=== PATIENT | male | born 1970 | race Caucasian/White ===

== ENCOUNTER → 2023-03-04 | Outpatient (CLI) | payer BC | END | disposition home or self-care (01) | LOC: LABWHC1 07:29 | PROVIDERS: ATTEND Nurse Practitioner | DX: N52.03 Combined arterial insufficiency and corporo-venous occlusive erectile dysfunction (principal) | CPT/HCPCS: 36415; 84403 ==

== ENCOUNTER → 2023-03-25 | Outpatient (CLI) | payer BC ==
--- NOTE | 2023-03-25 08:21 | MR ---
EXAMINATION TYPE: MR iac wo/w con DATE OF EXAM: 03/25/2023 COMPARISON: None HISTORY: rt ear tinnitus TECHNIQUE: Multi planar, multi sequence imaging was performed through the brain. Specialized thin sequences wer e obtained through the internal auditory canals. Pre-and post gadolinium sequences were obtained as well after administration of 12 cc of Gadavist. FINDINGS: The abad-white junctions, ventricular system, basal cisterns appear unremarkable. Diffusi on-weighted imaging shows no evidence of restricted diffusion. Few hyperintense foci of T2/FLAIR are seen within the subcortical white matter bilaterally. No susceptibility artifact to suggest microhem orrhage. The internal auditory canal sequences demonstrate no significant irregularity. The 7th cranial nerve s, 8 cranial nerves, and cerebellar pontine angles appear unremarkable. After the administration charissa olinium, no abnormal enhancement is seen within the internal auditory canals. Right aphakia. IMPRESSION: 1. No evidence of acute/subacute CVA. 2. No evidence of internal auditory canal abnormality. 3. Nonspecific few white matter changes which is likely related to chronic small vessel ischemic dise ase.
== END | disposition home or self-care (01) ==
LOC: RADMRIMAIN 06:45
PROVIDERS: ATTEND Otolaryngology
DX: H93.11 Tinnitus, right ear (principal); G93.89 Other specified disorders of brain
CPT/HCPCS: 70553; A9585

== ENCOUNTER 2023-07-08 13:07 | Observation (INO) | payer BC ==
[2023-07-08 13:34] VITALS: TEMP 98.4
--- NOTE | 2023-07-08 13:48 | ED ---
Chest Pain HPI - General Chief Complaint: Chest Pain Stated Complaint: Abnomal EKG Time Seen by Provider: 07/08/23 13:10 Source: patient ([id number]), RN notes reviewed Mode of arrival: ambulatory Limitations: no limitations - History of Present Illness Initial Comments: 52-year-old male presents emergency department with chief complaint of chest pain pressure. Patient states that he was seen by his PCP and sent here. He states he started with symptoms when he was in [place]. He states he noticed that he did have heart racing throughout the night he states with some activity noticed that heart rate elevated up to 120s to 160s. Patient states he has no prior cardiac disease other than hypertension patient denies any fevers chills cough or cold-like symptoms denies any leg pain or leg swelling no abdominal pain. - Related Data Home Medications Medication Instructions Recorded Confirmed Bpc-157 Peptide Supplement 1 dose INJ DAILY 07/08/23 07/08/23 Injection Igf1-Lr3 Peptide Supplement 1 dose INJ DAILY 07/08/23 07/08/23 Injection Losartan [Cozaar] 25 mg PO DAILY 07/08/23 07/08/23 Naproxen [EC-Naprosyn] 500 mg PO BID PRN 07/08/23 07/08/23 hydrALAZINE HCL [Apresoline] 25 mg PO TID 07/08/23 07/08/23 hydroCHLOROthiazide [Hydrodiuril] 25 mg PO DAILY 07/08/23 07/08/23 Allergies Allergy/AdvReac Type Severity Reaction Status Date / Time Penicillins Allergy Unknown Verified 07/08/23 14:24 Childhood Review of Systems ROS Statement: Those systems with pertinent positive or pertinent negative responses have been documented in the HPI. ROS Other: All systems not noted in ROS Statement are negative. EKG Findings - EKG Comments: EKG Findings:: EKG performed at 13: 21 sinus rhythm rate of 75 PA 161 QRS 88 QT/QTc 356/385 inverted T wave lead III - EKG Results: EKG: interpreted by ROD Past Medical History Past Medical History: Hypertension History of Any Multi-Drug Resistant Organisms: None Reported Past Surgical History: No Surgical Hx Reported Past Psychological History: No Psychological Hx Reported Smoking Status: Never smoker Past Alcohol Use History: None Reported, Rare Past Drug Use History: None Reported General Exam Limitations: no limitations General appearance: alert, in no apparent distress Head exam: Present: atraumatic, normocephalic, normal inspection Eye exam: Present: normal appearance ENT exam: Present: normal exam, normal oropharynx, mucous membranes moist Neck exam: Present: normal inspection, full ROM. Absent: tenderness, meningismus, lymphadenopathy Respiratory exam: Present: normal lung sounds bilaterally. Absent: respiratory distress, wheezes, rales, rhonchi, stridor Cardiovascular Exam: Present: regular rate, normal rhythm, normal heart sounds. Absent: systolic murmur, diastolic murmur, rubs, gallop, clicks Course Vital Signs 07/08/23 07/08/23 13:12 14:18 Temperature 98.4 F Pulse Rate 77 77 Respiratory 18 18 Rate Blood Pressure 131/87 133/88 O2 Sat by Pulse 97 98 Oximetry Chest Pain MDM - MDM Was pt. sent in by a medical professional or institution (, PA, RESISTOR TESTING MACHINE OPERATOR, urgent care, hospital, or [place] health [place] facility...) When possible be specific @ -No Did you speak to anyone other than the patient for history (EMS, parent, family, police, friend...)? What history was obtained from this source @ -No Did you review nursing and triage notes (agree or disagree)? Why? @ -I reviewed and agree with nursing and triage notes Were old charts reviewed (outside hosp., previous admission, EMS record, old EKG, old radiological studies, urgent care reports/EKG's, [place] health [place] records)? Report findings @ -No old charts were reviewed Differential Diagnosis (chest pain, altered mental status, abdominal pain women, abdominal pain men, vaginal bleeding, weakness, fever, dyspnea, syncope, headache, dizziness, GI bleed, back pain, seizure, CVA, palpatations, mental health, musculoskeletal)? @ -Differential Chest Pain: Stable Angina, Unstable Angina, STEMI, NSTEMI Aortic Dissection, Pneumothorax, Musculoskeletal, Esophageal Spasm GERD, Cholecystitis, Pancreatitis, Zoster, this is not meant to be an all-inclusive list. EKG interpreted by me (3pts min.). @ -As above X-rays interpreted by me (1pt min.). @ -[Chest x-ray shows no acute cardiopulmonary process CT interpreted by me (1pt min.). @ -None done U/S interpreted by me (1pt. min.). @ -None done What testing was considered but not performed or refused? (CT, X-rays, U/S, labs)? Why? @ -None What meds were considered but not given or refused? Why? @ -None Did you discuss the management of the patient with other professionals (professionals i.e. , PA, RESISTOR TESTING MACHINE OPERATOR, lab, RT, psych nurse, nursing home social worker, biostatistics professor, teacher, executive vice president and chief financial officer, nurse case management)? Give summary @ -[EM H for admission for cardiac rule out Was smoking cessation discussed for >3mins.? @ -No Was critical care preformed (if so, how long)? @ -No Were there social determinants of health that impacted care today? How? (Homelessness, low income, unemployed, alcoholism, drug addiction, transportati on, low edu. Level, literacy, decrease access to med. care, fci, rehab)? @ -No Was there de-escalation of care discussed even if they declined (Discuss DNR or withdrawal of care, Hospice)? DNR status @ -No What co-morbidities impacted this encounter? (DM, HTN, Smoking, COPD, CAD, Cancer, CVA, ARF, Chemo, Hep., AIDS, mental health diagnosis, sleep apnea, morbid obesity)? @ -[Hypertension Was patient admitted / discharged? Hospital course, mention meds given and route, prescriptions, significant lab abnormalities, going to OR and other pertinent info. @ -Admitted patient sent in by PCP for chest pain. Initial workup was negative. Patient on repeat laboratory studies, admission, cardiology evaluation echocardiogram Undiagnosed new problem with uncertain prognosis? @ -[No Drug Therapy requiring intensive monitoring for toxicity (Heparin, Nitro, Insulin, Cardizem)? @ -No Were any procedures done? @ -No Diagnosis/symptom? @ -[Chest pain Acute, or Chronic, or Acute on Chronic? @ -Acute Uncomplicated (without systemic symptoms) or Complicated (systemic symptoms)? @ -complicated Side effects of treatment? @ -[No Exacerbation, Progression, or Severe Exacerbation? @ -No Poses a threat to life or bodily function? How? (Chest pain, [place], [place], pneumonia, PE, COPD, DKA, ARF, appy, cholecystitis, CVA, Diverticulitis, Homicidal, Suicidal, threat to staff... and all critical care pts) @ -[Yes possible ACS Disposition Clinical Impression: Chest pain Disposition: ADMITTED IP TO THIS HOSP Condition: Fair Referrals: Sammy Farah DO [Primary Care Provider] - 1-2 days Time of Disposition: 14:47
[2023-07-08 13:49] LABS: Appearance,Urine Clear (Clear); Bilirubin,Urine Negative (Negative); Blood,Urine Negative (Negative); Color,Urine Colorless; Glucose,Urine (UA) Negative (Negative); Ketones,Urine Negative (Negative); Leukocyte Esterase,Urine Negative (Negative); Nitrite,Urine Negative (Negative); PH, Urine 6.5 (5.0-8.0); Protein,Urine Negative (Negative); Specific Gravity,Urine 1.009 (1.001-1.035); Urobilinogen,Urine <2.0 mg/dL (<2.0)
[2023-07-08 14:00] LABS: ALT 19 U/L (4-49); AST 26 U/L (17-59); African American GFR (CKD) 82 (>60 ml/min/1.73 sqM); Albumin 4.4 g/dL (3.5-5.0); Alkaline Phosphatase 64 U/L (38-126); Anion Gap 7 mmol/L; Basophils % (A) 1 %; Blood Urea Nitrogen 15 mg/dL (9-20); Calcium 9.3 mg/dL (8.4-10.2); Carbon Dioxide 27 mmol/L (22-30); Chloride 103 mmol/L (98-107); Eosinophils # (A) 0.2 k/uL (0-0.7); Eosinophils % (A) 5 %; Glucose 91 mg/dL (74-99); HCT 46.3 % (39.0-53.0); HGB 15.8 gm/dL (13.0-17.5); Lymphocytes # (A) 1.1 k/uL (1.0-4.8); Lymphocytes % (A) 28 %; MCHC 34.1 g/dL (31.0-37.0); MCV 93.9 fL (80.0-100.0); Magnesium 1.9 mg/dL (1.6-2.3); Mean Platelet Volume 7.9; Monocytes # (A) 0.2 k/uL (0-1.0); Monocytes % (A) 5 %; Neutrophils # (A) 2.4 k/uL (1.3-7.7); Neutrophils % (A) 59 %; Non-African American GFR(CKD) 71 (>60 ml/min/1.73 sqM); Platelet Count 217 k/uL (150-450); RBC 4.92 m/uL (4.30-5.90); Sodium 137 mmol/L (137-145); Total Bilirubin 0.5 mg/dL (0.2-1.3); Total Protein 7.1 g/dL (6.3-8.2); WBC 4.1 k/uL (3.8-10.6)
[2023-07-08 14:01] LABS: INR 0.9 (<1.2); Partial Thromboplastin Time 25.3 sec (22.0-30.0); Prothrombin Time 10.1 sec (10.0-12.5)
[2023-07-08 14:09] LABS: NT-Pro-B-Type Natriuretic Pept 31 pg/mL
[2023-07-08] MEDS: ASPIRIN 81 MG PO STA (14:24)
--- NOTE | 2023-07-08 14:25 | XR ---
EXAMINATION TYPE: XR chest 2V DATE OF EXAM: 07/08/2023 1:44 PM CLINICAL INDICATION:Male, 52 years old with history of Chest Pain; COMPARISON: None TECHNIQUE: XR chest 2V Frontal and lateral views of the chest. FINDINGS: Lungs/Pleura: There is no evidence of pleural effusion, focal consolidation, or pneumothorax. Pulmonary vascularity: Unremarkable. Heart/mediastinum: Cardiomediastinal silhouette is unremarkable. Musculoskeletal: No acute osseous pathology. Other findings: None IMPRESSION: No acute cardiopulmonary disease/process.
[2023-07-08] MEDS ORDERED: NAPROXEN 250 MG TAB PO PRN (17:03)
[2023-07-08] MEDS ORDERED: TEMAZEPAM 15 MG CAP PO PRN (17:04)
[2023-07-08] MEDS: PANTOPRAZOLE 40 MG TABLET PO SCH (17:52)
[2023-07-08] MEDS: hydrALAZINE HCL 25 MG TAB PO SCH (22:52)
--- NOTE | 2023-07-08 22:52 | HP ---
HISTORY AND PHYSICAL CHIEF COMPLAINT: Chest pain. HISTORY OF PRESENT ILLNESS: This is a 52-year-old gentleman with a past medical history of hypertension, was complaining of chest pain, which was felt in the central and left side of chest squeezing in character for the last several days. The patient was evaluated by primary care physician and was admitted and referred to [facility]. The EKG showed some minimal changes in lead 3 and possibly. There is no history of any fever, rigors, or chills. Initial troponins are negative. PAST MEDICAL HISTORY: Reviewed include hypertension. HOME MEDICATIONS: Reviewed include hydrochlorothiazide, rest of medications noted. ALLERGIES: Penicillin. FAMILY HISTORY: No history of heart disease or strokes in the family. SOCIAL HISTORY: No history of smoking or alcohol intake. The patient works in [employer] REVIEW OF SYSTEMS: Fourteen-point review is negative except as mentioned earlier. PHYSICAL EXAMINATION: VITAL SIGNS: Pulse 77, blood pressure 133/80, respirations 18. HEENT: Conjunctivae normal. NECK: No JVD. CARDIOVASCULAR: S1, S2. RESPIRATIONS: Clear to auscultation. ABDOMEN: Soft. NERVOUS SYSTEM: Nonfocal. SKIN: No ulcer, rash, bleeding. JOINTS: No active deforming arthropathy. LABORATORY DATA: Labs are noted. EKG reviewed. ASSESSMENT: 1. Chest pain, rule out coronary artery disease and unstable angina, myocardial infarction. 2. Abnormal EKG. 3. Hypertension. RECOMMENDATIONS AND DISCUSSION: This is a 52-year-old gentleman who presented with multiple complex medical issues, we will monitor the patient closely. Unstable angina protocol. Cardiology consultation. N.p.o. past midnight. Possible stress test in the morning per Cardiology. Otherwise, we will monitor the patient closely. We will check a fasting lipid also. MMODL / IJN: [id number] / MTDD
[2023-07-09 02:20] VITALS: BP 123/76
[2023-07-09 03:42] VITALS: PULSE 57; RESP 17
[2023-07-09] MEDS: NITROGLYCERIN SL TABS 0.4 MG TAB SUBLINGUAL PRN (08:43)
[2023-07-09] MEDS ORDERED: ASPIRIN 325 MG TAB PO SCH (09:00)
[2023-07-09] MEDS: NITROGLYCERIN SL TABS 0.4 MG TAB SUBLINGUAL STA (09:02)
[2023-07-09] MEDS: ACETAMINOPHEN TAB 325 MG TAB PO PRN (09:10)
--- NOTE | 2023-07-09 10:10 | P.CRDCN ---
History of Present Illness History of present illness: HISTORY OF PRESENT ILLNESS: This is a 52-year-old male with a past medical history significant for hypertension. Patient does not follow with a geometry teacher. We have been asked to see the patient in consultation for chest pain. Patient examined at the bedside in the emergency room. Patient states over the past 2 weeks he has been doing a lot of traveling for work. He states that he has been having episodes where he feels his heart racing and feels like his heart is being squeezed. He states he has a blood pressure machine and has been checking his blood pressure which has been normal. He states the heart rate is usually in the 90s despite feeling like his heart is racing. He does report that the symptoms seem to get worse at night. He reports that he recently started taking 2 types of peptides that are injected. 1 is for gut health and 1 is for muscle growth. He is a non-smoker. He denies any drug use including marijuana. He reports social alcohol use. He states that he usually exercises at least 5 days a week. He reports recently he has been getting more short of breath with exercise and also noticing that his heart rate is higher than normal. He reports that his mother had stents placed in 2005. The patient did receive a dose of sublingual nitro this morning without resolution of his chest pain. DIAGNOSTICS: - EKG reveals sinus mechanism with no signs of acute ischemia. - Chest xray negative for acute process. - Laboratory data: WBC 4.1. Hemoglobin 15.8. Platelet count 217. D-dimer 0.28. Sodium 137. Potassium 4.0. BUN 15. Creatinine 1.17. Magnesium 1.9. Troponin negative x 3. proBNP 31. - Current home cardiac medications include hydrochlorothiazide 25 mg daily, losartan 25 mg daily, and hydralazine 25 mg 3 times a day. REVIEW OF SYSTEMS: At the time of my exam: CONSTITUTIONAL: Denies fever or chills. HEENT: Denies blurred vision, vision changes, or eye pain. Denies hemoptysis CARDIOVASCULAR: Denies chest pain. Denies orthopnea. Denies PND. Denies palpitations RESPIRATORY: Denies shortness of breath. GASTROINTESTINAL: Denies abdominal pain. Denies nausea or vomiting. HEMATOLOGIC: Denies bleeding disorders. GENITOURINARY: Denies any blood in urine. SKIN: Denies pruitis. Denies rash. PHYSICAL EXAM: VITAL SIGNS: Reviewed. GENERAL: Well-developed in no acute distress. HEENT: Head is normocephalic. Pupils are equal, round. Sclerae anicteric. Mucous membranes of the mouth are moist. Neck supple. No JVD or thyromegaly LUNGS: Respirations even and unlabored. Lungs essentially clear to auscultation bilaterally. HEART: Regular rate and rhythm. S1 and S2 heard. ABDOMEN: Soft. Nondistended. Nontender. EXTREMITIES: Normal range of motion. No clubbing or cyanosis. Peripheral pulses intact. No lower extremity edema NEUROLOGIC: Awake and alert. Oriented x 3. ASSESSMENT: Palpitations Chest pain, troponin negative x 3 History of hypertension PLAN: An acute coronary event has been ruled out Obtain 2D echo to assess cardiac structure and function Resume home cardiac medications Patient to undergo stress echocardiogram today If negative, he may be discharged home from a cardiac standpoint Nurse practitioner note has been reviewed by physician. Signing provider agrees with the documented findings, assessment, and plan of care documented by HORTICULTURAL FARMWORKER as a scribe. Past Medical History Past Medical History: Hypertension History of Any Multi-Drug Resistant Organisms: None Reported Past Surgical History: No Surgical Hx Reported Past Psychological History: No Psychological Hx Reported Smoking Status: Never smoker Past Alcohol Use History: None Reported, Rare Past Drug Use History: None Reported Medications and Allergies Home Medications Medication Instructions Recorded Confirmed Type Bpc-157 Peptide Supplement 1 dose INJ DAILY 07/08/23 07/08/23 History Injection Igf1-Lr3 Peptide Supplement 1 dose INJ DAILY 07/08/23 07/08/23 History Injection Losartan [Cozaar] 25 mg PO DAILY 07/08/23 07/08/23 History Naproxen [EC-Naprosyn] 500 mg PO BID PRN 07/08/23 07/08/23 History hydrALAZINE HCL [Apresoline] 25 mg PO TID 07/08/23 07/08/23 History hydroCHLOROthiazide [Hydrodiuril] 25 mg PO DAILY 07/08/23 07/08/23 History Allergies Allergy/AdvReac Type Severity Reaction Status Date / Time Penicillins Allergy Unknown Verified 07/08/23 14:24 Childhood Physical Exam Vitals: Vital Signs Temp Pulse Resp BP Pulse Ox 07/09/23 03:41 57 L 17 96 07/09/23 02:08 60 18 123/76 93 L 07/09/23 00:20 64 19 96 07/08/23 22:53 95 17 142/91 98 07/08/23 19:28 73 19 136/82 98 07/08/23 16:00 61 20 121/85 97 07/08/23 14:18 77 18 133/88 98 07/08/23 13:12 98.4 F 77 18 131/87 97 Results 07/08/23 13:30 07/08/23 13:30 Cardiac Enzymes 07/08/23 07/08/23 07/08/23 Range/Units 13:30 13:30 16:00 AST 26 (17-59) U/L Troponin I <0.012 <0.012 (0.000-0.034) ng/mL 07/08/23 Range/Units 18:52 AST (17-59) U/L Troponin I <0.012 (0.000-0.034) ng/mL Coagulation 07/08/23 Range/Units 13:30 PT 10.1 (10.0-12.5) sec APTT 25.3 (22.0-30.0) sec CBC 07/08/23 Range/Units 13:30 WBC 4.1 (3.8-10.6) k/uL RBC 4.92 (4.30-5.90) m/uL Hgb 15.8 (13.0-17.5) gm/dL Hct 46.3 (39.0-53.0) % Plt Count 217 (150-450) k/uL Comprehensive Metabolic Panel 07/08/23 Range/Units 13:30 Sodium 137 (137-145) mmol/L Potassium 4.0 (3.5-5.1) mmol/L Chloride 103 (98-107) mmol/L Carbon Dioxide 27 (22-30) mmol/L BUN 15 (9-20) mg/dL Creatinine 1.17 (0.66-1.25) mg/dL Glucose 91 (74-99) mg/dL Calcium 9.3 (8.4-10.2) mg/dL AST 26 (17-59) U/L ALT 19 (4-49) U/L Alkaline Phosphatase 64 (38-126) U/L Total Protein 7.1 (6.3-8.2) g/dL Albumin 4.4 (3.5-5.0) g/dL Current Medications Generic Name Dose Route Start Last Admin Trade Name Freq PRN Reason Stop Dose Admin Aspirin 325 mg 07/09/23 09:00 Aspirin 325 Mg Tab PO DAILY [facility] Hydralazine HCl 25 mg 07/08/23 22:00 07/08/23 22:52 Hydralazine Hcl 25 Mg Tab PO 25 mg TID STEFFI Administration Hydrochlorothiazide 25 mg 07/09/23 09:00 Hydrochlorothiazide 25 Mg Tab PO DAILY [facility] Losartan Potassium 25 mg 07/09/23 09:00 Losartan 25 Mg Tab PO DAILY [facility] Naproxen 500 mg 07/08/23 17:03 Naproxen 250 Mg Tab PO BID PRN Pain or Fever > 100.5 Nitroglycerin 0.4 mg 07/08/23 15:03 Nitroglycerin Sl Tabs 0.4 Mg Tab SUBLINGUAL Q5M PRN Chest Pain Pantoprazole Sodium 40 mg 07/08/23 17:15 07/08/23 17:52 Pantoprazole 40 Mg Tablet PO 40 mg AC-BRKFST [facility] Administration Temazepam 15 mg 07/08/23 17:04 Temazepam 15 Mg Cap PO HS PRN Insomnia 07/08/23 13:30 07/08/23 13:30
[2023-07-09 12:33] LABS: BUN/Creat Ratio 12.38 Ratio (12.00-20.00); Blood Urea Nitrogen 16.1 mg/dL (9.0-27.0); Calcium 9.3 mg/dL (8.7-10.3); Carbon Dioxide 29.1 mmol/L (21.6-31.8); Chloride 101 mmol/L (96-109); Chol/HDL Ratio 2.96 Ratio; Glucose 97 mg/dL (70-110); LDL Cholesterol,Calculated 80.3 mg/dL (0.0-131.0); Sodium 139 mmol/L (135-145); VLDL Calculation 18.38 mg/dL (5.00-40.00)
[2023-07-09] MEDS: hydroCHLOROthiazide 25 MG TAB PO SCH (12:51)
[2023-07-09] MEDS: LOSARTAN 25 MG TAB PO SCH (12:51)
--- NOTE | 2023-07-09 12:56 | CA ---
Stress Echo Report Will Jenkins Age: 52 Gender: M : 1970 Exam Date: 07/09/2023 11:36 Exam Location: [place] Stress Ht (in): 63 Wt (lb): 280 Ordering Physician: Ritu Ramirez Referring Physician: [id number] Telephone Clerk: Armen Bah Technologist Procedure CPT: Indication: CP, palpitations ICD-9 Codes: Rhythm: Patient History: Cardiac Medications: Medications in past 24 hours: Contrast: N/A Stress Results Protocol: Laz Total dose(mL): NA Exercise Duration (min:sec): 10:[address] Depression (mm): Angina Score: Arevalo Score: METS: 12.1 Resting HR: 91 Resting BP: 105 / 47 Peak HR: 171 Peak BP: 160 / 51 Max Predicted HR: 167 102 % Max Predicted HR Target HR: 142 Double Product: [id number] Stress Summary: BP Response: Reason for Termination: Reached target heart rate or work-load Cardiac Symptoms: CHEST PAIN ECG Analysis Resting ECG: Stress ECG: Arrhythmia: Echo Analysis Resting Echo: Peak Echo Analysis: MEASUREMENTS (Male/Female) Normal Values CONCLUSIONS Patient underwent exercise stress echo with a Laz protocol treadmill stress test. Patient exercised into Stage 3 for a total of 10 minutes and 35 seconds reaching a total of 12.1 METS. Patient's maximum heart rate was 171 which represented 100 % age-predicted maximum heart rate. Patient was noted to have atypical chest pain throughout the exam unchanged. Stress EKG portion: At baseline patient's EKG showed normal sinus rhythm, normal axis, no significant ST or T wave abnormalities. At peak exercise, EKG showed no significant change from baseline. Stress echo portion: 2-D echocardiogram was performed in the parasternal long, personal short, apical 2 and apical four-chamber views at rest, peak exercise and in recovery. At baseline, echocardiogram showed left ventricular ejection fraction 55% without wall motion abnormalities. With peak exercise, echocardiogram shows improvement in left ventricular ejection fraction, increase contractility, decrease in left ventricular end systolic dimension without wall motion abnormalities consistent with a normal response to exercise. Conclusions: 1. Normal EKG and echo response to exercise without evidence of inducible ischemia. 2. Good exercise capacity. 3. Persistent chest pain noted throughout exam, clinical correlation recommended Dr. Rubio Boothe DO (Electronically Signed) Final Date: 09 July 2023 12:55
[2023-07-09 14:50] LABS: Basophils # (A) 0.1 k/uL (0-0.2); Basophils % (A) 1 %; Eosinophils # (A) 0.1 k/uL (0-0.7); Eosinophils % (A) 1 %; HCT 46.6 % (39.0-53.0); HGB 15.2 gm/dL (13.0-17.5); Lymphocytes # (A) 1.2 k/uL (1.0-4.8); Lymphocytes % (A) 12 %; MCH 30.7 pg (25.0-35.0); MCHC 32.7 g/dL (31.0-37.0); MCV 93.9 fL (80.0-100.0); Mean Platelet Volume 8.7; Monocytes # (A) 0.4 k/uL (0-1.0); Monocytes % (A) 4 %; Neutrophils # (A) 7.7 k/uL (1.3-7.7); Neutrophils % (A) 81 %; Platelet Count 185 k/uL (150-450); RBC 4.96 m/uL (4.30-5.90); RDW 12.9 % (11.5-15.5); WBC 9.5 k/uL (3.8-10.6)
--- NOTE | 2023-07-09 15:03 | CA ---
Transthoracic Echo Report Name: Will Jenkins Age: 52 Gender: M : 1970 Exam Date: 07/09/2023 12:02 Exam Location: [place] Echo Ht (in): 75 Wt (lb): 280 Ordering Physician: Ritu Ramirez Attending/Referring Phys: [id number], Ashley Survey Researcher Luz Elena Bean, RDCS Procedure CPT: Indications: LV function, CP Cardiac Hx: Technical Quality: Fair Contrast 1: Total Dose (mL): Contrast 2: Total Dose (mL): MEASUREMENTS (Male / Female) Normal Values 2D ECHO LV Diastolic Diameter PLAX 5.0 cm 4.2 - 5.9 / 3.9 - 5.3 cm LV Systolic Diameter PLAX 3.3 cm IVS Diastolic Thickness 1.2 cm 0.6 - 1.0 / 0.6 - 0.9 cm LVPW Diastolic Thickness 1.2 cm 0.6 - 1.0 / 0.6 - 0.9 cm LV Relative Wall Thickness 0.5 RV Internal Dim ED PLAX 3.3 cm LA Systolic Diameter LX 3.5 cm 3.0 - 4.0 / 2.7 - 3.8 cm LA Volume 57.7 cm??? 18 - 58 / 22 - 52 cm??? LA Volume Index 21.9 cm???/m??? 16 - 28 cm???/m??? M-MODE Aortic Root Diameter MM 3.4 cm MV E Point Septal Separation 1.2 cm AV Cusp Separation MM 2.3 cm DOPPLER AV Peak Velocity 127.5 cm/s AV Peak Gradient 6.5 mmHg MV Area PHT 3.9 cm??? Mitral E Point Velocity 64.3 cm/s Mitral A Point Velocity 74.0 cm/s Mitral E to A Ratio 0.9 MV Deceleration Time 192.5 ms MV E' Velocity 10.7 cm/s Mitral E to MV E' Ratio 6.0 TR Peak Velocity 242.3 cm/s TR Peak Gradient 23.5 mmHg Right Ventricular Systolic Press 28.5 mmHg FINDINGS Left Ventricle Left ventricular ejection fraction is estimated at 60-65 %. Left ventricular cavity size normal. Mildly increased septal wall thickness. Right Ventricle Normal right ventricular size and function. Right ventricular systolic pressure within normal limits. Right Atrium Normal right atrial size. Left Atrium Mildly increased left atrial area. Mitral Valve Structurally normal mitral valve. No mitral stenosis, regurgitation or prolapse. Aortic Valve Trileaflet aortic valve. No aortic valve stenosis or regurgitation. Tricuspid Valve Structurally normal tricuspid valve. Mild tricuspid regurgitation. Pulmonic Valve Structurally normal pulmonic valve. No pulmonic regurgitation. Pericardium No pericardial effusion. Aorta Normal size aortic root and proximal ascending aorta. CONCLUSIONS Left ventricular ejection fraction 60-65% Mildly increased left ventricular wall thickness RVSP 28 No mitral regurgitation Mild tricuspid regurgitation Previewed by: Dr. Rubio Boothe DO (Electronically Signed) Final Date: 09 July 2023 15:02
--- NOTE | 2023-07-09 19:00 | P.DS ---
Providers Date of admission: 07/08/23 15:11 Expected date of discharge: 07/09/23 Attending physician: Mulu Goldsmith MD Consults: 07/08/23 15:04 Consult Physician Urgent Consulting Provider: Rubio Boothe Consult Reason/Comments: chest pain Do you want consulting provider notified?: Yes Primary care physician: [facility] Course: Final diagnosis Chest pain, ruled out ACS, status post normal stress test Abnormal EKG Hypertension history Obesity with a BMI of 35.0 GI prophylaxis DVT prophylaxis Full code Discharge disposition Patient is being discharged in a stable condition with guarded prognosis to home. Patient will follow-up with Dr. Martins in the outpatient setting upon discharge. Patient is to continue with current medications and outpatient follow-up with cardiology as scheduled. Total time taken is greater than 35 minutes. Hospital course This is a 52 year-old male who was recently admitted with chest pain that has been ongoing for the last 3 weeks. Patient had recently quit drinking coffee, reports cut back on his exercise and workout supplement drinks and continues to have this ongoing chest pain that mostly occurs at night in his sleep. Patient did undergo stress test with Dr. Boothe today which was negative for inducible ischemia and patient has been cleared for cardiology follow-up outpatient. Discussed with patient about following up with primary care provider as well if pain persists. Please refer to cardiology consultation for further HPI. Currently no reports of chest pain, shortness of breath, or palpitations. Patient is afebrile. No reports of nausea or vomiting and patient is tolerating diet. Patient will be discharged home today. Guarded prognosis Physical exam: Gen: This is a 52-year-old male who is awake, alert and oriented x 3, well- developed, well-nourished, obese HEENT: Head is atraumatic, normocephalic. Pupils equal, round. Sclerae is anicteric. NECK: Supple. No JVD. No lymphadenopathy. No thyromegaly. LUNGS: Clear to auscultation. No wheezes or rhonchi. No intercostal retractions. HEART: S1, S2 are muffled ABDOMEN: Soft. Obese. Bowel sounds are present. No masses. No tenderness. EXTREMITIES: No pedal edema. No calf tenderness. NEUROLOGICAL: Patient is awake, alert and oriented x3. Cranial nerves 2 through 12 are grossly intact. Please refer to medication reconciliation sheet for a list of medications. The impression and plan of care has been dictated by Mishel Vasquez, Nurse Practitioner as directed. Dr. Diego MD I have performed a history and examination and MDM of this patient, discussed the same with the dictator, and agree with the dictator's assessment and plan as written ,documented as a scribe. Based on total visit time, I have performed more than 50% of the visit. Patient Condition at Discharge: Fair Plan - Discharge Summary New Discharge Prescriptions: New Acetaminophen Tab [Tylenol] 650 mg PO Q6HR PRN tab PRN Reason: Fever And/ Or Pain Continue Bpc-157 Peptide Supplement Injection 1 dose INJ DAILY hydroCHLOROthiazide [Hydrodiuril] 25 mg PO DAILY Naproxen [EC-Naprosyn] 500 mg PO BID PRN PRN Reason: Pain Or Fever > 100.5 Losartan [Cozaar] 25 mg PO DAILY Igf1-Lr3 Peptide Supplement Injection 1 dose INJ DAILY hydrALAZINE HCL [Apresoline] 25 mg PO TID Discharge Medication List Bpc-157 Peptide Supplement Injection 1 dose INJ DAILY 07/08/23 [History] Igf1-Lr3 Peptide Supplement Injection 1 dose INJ DAILY 07/08/23 [History] Losartan [Cozaar] 25 mg PO DAILY 07/08/23 [History] Naproxen [EC-Naprosyn] 500 mg PO BID PRN 07/08/23 [History] hydrALAZINE HCL [Apresoline] 25 mg PO TID 07/08/23 [History] hydroCHLOROthiazide [Hydrodiuril] 25 mg PO DAILY 07/08/23 [History] Acetaminophen Tab [Tylenol] 650 mg PO Q6HR PRN tab 07/09/23 [Rx] Follow up Appointment(s)/Referral(s): Sammy Farah DO [Primary Care Provider] - 1-2 days Rubio Boothe DO [STAFF PHYSICIAN] - 1 Week Activity/Diet/Wound Care/Special Instructions: Activity limited until follow-up Follow-up with primary care provider on discharge Follow-up with cardiology Continue taking medications as prescribed Discharge Disposition: HOME SELF-CARE
== END 2023-07-09 15:31 | disposition home or self-care (01) ==
LOC: EC 13:07 → 6NMEDSUR 15:11
PROVIDERS: ADMIT Internal Medicine; ATTEND Internal Medicine
DX: R07.89 Other chest pain (principal); R94.31 Abnormal electrocardiogram [ECG] [EKG]; I10 Essential (primary) hypertension; R00.0 Tachycardia, unspecified; R00.2 Palpitations; E66.9 Obesity, unspecified; Z68.35 Body mass index [BMI] 35.0-35.9, adult; Z79.899 Other long term (current) drug therapy; Z88.0 Allergy status to penicillin; Z82.49 Family history of ischemic heart disease and other diseases of the circulatory system
CPT/HCPCS: 99285; 36415; 93005 ×2; 93306; 93351; 85379; 83880; 80061; 80053; 80048; 84443; 83735; 84484; 85025 ×2; 85610; 85730; 81003; 71046; G0378 ×2

== ENCOUNTER → 2024-08-11 | Outpatient (CLI) | payer BC ==
--- NOTE | 2024-08-12 08:25 | MR ---
EXAMINATION TYPE: MR elbow LT wo con DATE OF EXAM: 08/11/2024 6:36 AM COMPARISON: None. CLINICAL INDICATION: Male, 53 years old with history of M77.12 LAT EPICONDYLITIS S46.219A STRAIN BIC EPS; PHH, Left elbow pain for 6 months TECHNIQUE: Multiplanar multi-sequence imaging was performed of the elbow joint. No gadolinium given. FINDINGS: Increased signal in the biceps tendon near its insertion. There may be partial thickness tear of the tendon itself along the radial aspect near the insertion series 301 image 600 fibers are intact. Exte nsive edema around the distal tendon. Ligaments and tendons: Increased signal in the biceps tendon near its insertion. There may be partial thickness tear of the tendon itself along the radial aspect near the insertion series 301 image 600 and 271 image 26. Exten sive edema around the distal tendon. The common extensor tendon has intermediate T2 signal intensity with in it series 701 image 24. The tendon remains intact. The lateral ulnar collateral ligament, annular ligament, and lateral collater al ligament are intact. The common flexor tendon, brachialis tendon, and triceps tendon are within n ormal limits. Osseous structures: The remaining bone marrow signal intensity is unremarkable. A small amount of sully int fluid is noted. IMPRESSION: 1. Biceps tendinosis/partial-thickness tear near its insertion with surrounding edema/tenosynovitis. 2. Mild lateral epicondylitis. [facility], , 08/12/2024 8:23 AM
== END | disposition home or self-care (01) ==
LOC: RADMRIMAIN 05:52
PROVIDERS: ATTEND Orthopaedic Surgery
DX: S46.212A Strain of muscle, fascia and tendon of other parts of biceps, left arm, initial encounter (principal); M77.12 Lateral epicondylitis, left elbow